=== PATIENT | female | born 1940 | race Caucasian/White ===

== ENCOUNTER 2017-05-01 00:43 | Emergency (ER) | payer MEDICARE, OTHER ==
[2016-02-09 07:19] VITALS: BMI 21.6
[~2017-05-01 00:43] MED LIST: HYDROCODONE-APA1 TAB PO; OMEPRAZOLE20 M1 PO; RESTORIL15 MG PO
== END 2017-05-01 02:25 | disposition home or self-care (01) ==
LOC: D.ER 00:43
DX: J11.1 Influenza due to unidentified influenza virus with other respiratory manifestations (principal); R51 Headache; R09.89 Other specified symptoms and signs involving the circulatory and respiratory systems; H92.03 Otalgia, bilateral

== ENCOUNTER → 2017-06-03 08:48 | Outpatient (CLI) | payer MEDICARE, OTHER ==
[2016-02-09 07:19] VITALS: BMI 21.6
== END | disposition home or self-care (01) ==
LOC: D.CT 08:48
DX: R10.31 Right lower quadrant pain (principal)

== ENCOUNTER → 2017-06-13 16:30 | Outpatient (CLI) | payer MEDICARE, OTHER ==
[2016-02-09 07:19] VITALS: BMI 21.6
== END | disposition home or self-care (01) ==
LOC: D.MAMMO 13:30
DX: Z12.31 Encounter for screening mammogram for malignant neoplasm of breast (principal)